=== PATIENT | female | born 1985 | race African-American/Black ===

== ENCOUNTER 2017-09-28 08:28 | Inpatient (IN) | payer SELFPAY ==
[~2017-09-28] VITALS: Ht 157.5 cm; Wt 60.8 kg
[2017-09-28 09:24] LABS: BASOPHILS % 0.2 % (0.0-2.0); HEMOGLOBIN. 10.8 g/dL (12.0-16.0); MEAN CORPUSCULAR HEMOGLOBIN 22.7 pg (28.0-32.0); MEAN CORPUSCULAR VOLUME 73.7 fL (81.0-99.0); MONOCYTES % 6.3 % (2.0-8.0); NEUTROPHILS % 84.5 % (40.0-76.0); PLATELET 418 x1000/uL (130-400); RED BLOOD CELL COUNT 4.75 mill/uL (4.2-5.4); RED CELL DISTRIBUTION WIDTH 13.9 % (11.6-14.6)
[2017-09-28 09:30] LABS: CHLORIDE 98 mEq/L (98-107)
[2017-09-28 09:32] LABS: INR 1.1; PROTHROMBIN TIME 11.1 sec (9.4-11.6)
[2017-09-28 09:45] LABS: CLARITY URINE CLEAR (CLEAR); COLOR URINE DARK YELLOW (YELLOW); KETONES URINE NEGATIVE (NEGATIVE); LEUKOCYTE ESTERASE URINE 2+ (NEGATIVE); NITRITE URINE NEGATIVE (NEGATIVE); OCCULT BLOOD URINE NEGATIVE (NEGATIVE); PH URINE >=9.0 (4.5-8.0); PROTEIN URINE 2+ (NEGATIVE); SPECIFIC GRAVITY URINE 1.024 (1.005-1.030)
[2017-09-28] MEDS ORDERED: CEFTRIAXONE 1 G PREMIX 50 ML IV ONE (11:15)
[2017-09-28] MEDS ORDERED: KETOROLAC 30MG/ML VIAL IV STA (11:27)
[2017-09-28] MEDS ORDERED: ACETAMINOPHEN 325MG TABLET PO STA (11:27)
[2017-09-28] MEDS ORDERED: SODIUM CHLORIDE 0.9% 1000ML BAG (SEPSIS BOLUS) IV ONE (11:30)
[2017-09-28] MEDS ORDERED: IOHEXOL-300 100 ML BOTTLE ONE (12:50)
[2017-09-28] MEDS ORDERED: DOXYCYCLINE HYCLATE 100MG CAPSULE PO ONE (14:15)
[2017-09-28] MEDS ORDERED: METRONIDAZOLE 500 MG PREMIX 100 ML IV ONE (14:15)
[2017-09-28] MEDS ORDERED: MORPHINE SULFATE 4 MG/ML CPJ (NOT FOR IM USE) IV ONE (14:15)
[2017-09-28] MEDS ORDERED: SODIUM CHLORIDE 0.9% 1,000 ML IV SCH (14:21)
[2017-09-28] MEDS ORDERED: CLONIDINE 0.1MG TABLET PO PRN (14:30)
[2017-09-28] MEDS ORDERED: IPRATROPIUM/ALBUTEROL 0.5-3(2.5)MG/3ML NEB INH PRN (14:30)
[2017-09-28] MEDS ORDERED: MAGNESIUM/ALUMINUM HYDROXIDE/SIMETHICONE 30ML UDC PO PRN (14:30)
[2017-09-28] MEDS ORDERED: HYDROMORPHONE HCL/PF 2MG/ML CPJ IV PRN (14:30)
[2017-09-28] MEDS ORDERED: POTASSIUM CHLORIDE 20MEQ TABLET SR PO NR (18:00)
[2017-09-28 18:16] LABS: TOTAL IRON BINDING CAPACITY 340 ug/dL (250-450)
[2017-09-28] MEDS: CEFOXITIN SODIUM 2 G in DEXT 5% WATER 100 ML IV SCH ×2 (19:01→19:03)
[2017-09-28] MEDS: DEXT 5%/0.9% NACL 1,000 ML IV SCH (19:04)
[2017-09-28] MEDS: ONDANSETRON HCL 4MG/2ML VIAL IV PRN ×2 (19:14→23:52)
[2017-09-28 21:00] VITALS: BP 116/68
[2017-09-28 21:35] VITALS: BP 116/68
[2017-09-28] MEDS: MORPHINE SULFATE 4 MG/ML CPJ (NOT FOR IM USE) IV PRN (23:54)
[2017-09-28] MEDS: METRONIDAZOLE 500 MG PREMIX 100 ML IV SCH (23:55)
[2017-09-29] VITALS (7 sets, daily range): BP systolic 94–113; BP diastolic 50–100
[2017-09-29] MEDS: ACETAMINOPHEN 325MG TABLET PO PRN (00:34)
[2017-09-29] MEDS: METRONIDAZOLE 500 MG PREMIX 100 ML IV SCH ×3 (06:21→23:18)
[2017-09-29] MEDS: MORPHINE SULFATE 4 MG/ML CPJ (NOT FOR IM USE) IV PRN ×4 (06:22→19:29)
[2017-09-29] MEDS: DEXT 5%/0.9% NACL 1,000 ML IV SCH ×2 (06:32→17:09)
[2017-09-29] MEDS: ONDANSETRON HCL 4MG/2ML VIAL IV PRN ×2 (10:51→19:28)
[2017-09-29] MEDS: DOCUSATE SODIUM SUGAR FREE 100MG/10ML UDC NG SCH ×2 (11:15→17:00)
[2017-09-29] MEDS ORDERED: HYDROMORPHONE HCL/PF 2MG/ML CPJ IM PRN (11:15)
[2017-09-29] MEDS: DOXYCYCLINE HYCLATE 100MG CAPSULE PO SCH ×3 (11:19→21:09)
[2017-09-29] MEDS: DOCUSATE SODIUM 100MG CAPSULE PO PRN ×2 (11:19→17:09)
[2017-09-29] MEDS: CEFOXITIN SODIUM 2 G in DEXT 5% WATER 100 ML IV SCH ×2 (11:21→17:09)
[2017-09-29] MEDS: KETOROLAC 30MG/ML VIAL IV SCH ×2 (11:57→18:10)
[2017-09-29 13:14] LABS: HEMATOCRIT. 28.9 % (36.0-48.0); MEAN CORPUSCULAR HEMOGLOBIN 23.3 pg (28.0-32.0); MEAN PLATELET VOLUME 9.3 fl (7.4-10.4); PLATELET 354 x1000/uL (130-400); RED BLOOD CELL COUNT 3.85 mill/uL (4.2-5.4); RED CELL DISTRIBUTION WIDTH 13.4 % (11.6-14.6)
[2017-09-29 13:34] LABS: CHLORIDE 103 mEq/L (98-107)
[2017-09-29 14:36] LABS: PLATELET ESTIMATE NORMAL
[2017-09-29] MEDS ORDERED: POTASSIUM CHLORIDE 20MEQ TABLET SR PO NR (18:00)
[2017-09-29] MEDS: FERROUS SULFATE 325MG TABLET PO SCH (18:17)
[2017-09-29] MEDS: POLYETHYLENE GLYCOL 3350 (17GM) 1 DOSE PACK PO SCH (18:18)
[2017-09-30] VITALS: BP 94/56
[2017-09-30] MEDS: CEFOXITIN SODIUM 2 G in DEXT 5% WATER 100 ML IV SCH ×5 (00:26→23:49)
[2017-09-30] MEDS: KETOROLAC 30MG/ML VIAL IV SCH ×5 (00:28→23:49)
[2017-09-30 04:00] VITALS: BP 110/77
[2017-09-30] MEDS: ACETAMINOPHEN 325MG TABLET PO PRN (04:13)
[2017-09-30] MEDS: METRONIDAZOLE 500 MG PREMIX 100 ML IV SCH ×3 (05:55→21:09)
[2017-09-30 08:26] LABS: HIV SCREEN 4G Non Reactive (Non Reactive)
[2017-09-30 09:08] VITALS: BP 103/65
[2017-09-30] MEDS: FERROUS SULFATE 325MG TABLET PO SCH ×3 (09:20→17:29)
[2017-09-30] MEDS: DOXYCYCLINE HYCLATE 100MG CAPSULE PO SCH ×2 (09:20→20:32)
[2017-09-30] MEDS: POLYETHYLENE GLYCOL 3350 (17GM) 1 DOSE PACK PO SCH (09:20)
[2017-09-30 09:25] LABS: CHLORIDE 103 mEq/L (98-107)
[2017-09-30] MEDS: DOCUSATE SODIUM SUGAR FREE 100MG/10ML UDC NG SCH ×2 (09:33→17:28)
[2017-09-30] MEDS: DEXT 5%/0.9% NACL 1,000 ML IV SCH (09:34)
[2017-09-30 09:39] LABS: HEMATOCRIT. 29.8 % (36.0-48.0); HEMOGLOBIN. 9.2 g/dL (12.0-16.0); MEAN CORPUSCULAR VOLUME 74.3 fL (81.0-99.0); MEAN PLATELET VOLUME 9.3 fl (7.4-10.4); PLATELET 397 x1000/uL (130-400); RED BLOOD CELL COUNT 4.01 mill/uL (4.2-5.4); RED CELL DISTRIBUTION WIDTH 13.6 % (11.6-14.6)
[2017-09-30] MEDS ORDERED: POTASSIUM CHLORIDE 20MEQ TABLET SR PO SCH (12:00)
[2017-09-30] MEDS ORDERED: NA PHOS,M-B/NA PHOS,DI-BA ENEMA 118ML PR PRN (12:00)
[2017-09-30 12:22] VITALS: BP 108/67
[2017-09-30 13:45] LABS: PLATELET ESTIMATE NORMAL
[2017-09-30] MEDS ORDERED: MORPHINE SULFATE 4 MG/ML CPJ (NOT FOR IM USE) IV PRN (15:30)
[2017-09-30 16:05] VITALS: BP 112/65
[2017-09-30] MEDS: DEXT 5%/0.45% NACL KCL 20MEQ/L 1,000 ML IV SCH (17:29)
[2017-09-30] MEDS: METOCLOPRAMIDE HCL 10MG/2ML VIAL IV SCH ×2 (17:29→23:49)
[2017-09-30 20:00] VITALS: BP 101/54
[2017-09-30] MEDS ORDERED: SENNOSIDES/DOCUSATE SOD 8.6/50MG TABLET PO PRN (21:00)
[2017-10-01 00:05] VITALS: BP 101/61
[2017-10-01 04:00] VITALS: BP 99/60
[2017-10-01 04:19] LABS: CHLAMYDIA TRACHOMATIS NAA Negative (Negative); NEISSERIA GONORRHOEAE NAA Negative (Negative)
[2017-10-01] MEDS: DEXT 5%/0.45% NACL KCL 20MEQ/L 1,000 ML IV SCH (05:14)
[2017-10-01] MEDS: KETOROLAC 30MG/ML VIAL IV SCH ×2 (05:14→11:40)
[2017-10-01] MEDS: METOCLOPRAMIDE HCL 10MG/2ML VIAL IV SCH ×2 (05:14→11:39)
[2017-10-01] MEDS: CEFOXITIN SODIUM 2 G in DEXT 5% WATER 100 ML IV SCH (05:15)
[2017-10-01] MEDS: METRONIDAZOLE 500 MG PREMIX 100 ML IV SCH (06:08)
[2017-10-01 08:00] VITALS: BP 120/83
[2017-10-01] MEDS: FERROUS SULFATE 325MG TABLET PO SCH (09:02)
[2017-10-01] MEDS: DOCUSATE SODIUM 100MG CAPSULE PO PRN (09:02)
[2017-10-01] MEDS: DOXYCYCLINE HYCLATE 100MG CAPSULE PO SCH (09:02)
[2017-10-01] MEDS: POLYETHYLENE GLYCOL 3350 (17GM) 1 DOSE PACK PO SCH (09:03)
[2017-10-01] MEDS: DOCUSATE SODIUM SUGAR FREE 100MG/10ML UDC NG SCH (09:11)
[2017-10-01 12:00] VITALS: BP 120/80
[2017-10-01] MEDS ORDERED: DOXY100C2 PO (12:07)
[2017-10-01 13:20] VITALS: BP 120/80
== END 2017-10-01 14:14 | disposition home or self-care (01) | DRG 720 ==
LOC: ER 08:49 → 7WST 14:13 → ENRESERV 19:49
PROVIDERS: ADMIT Internal Medicine; ATTEND Internal Medicine
DX: A41.9 Sepsis, unspecified organism (principal); K76.0 Fatty (change of) liver, not elsewhere classified; E87.1 Hypo-osmolality and hyponatremia; K56.7 Ileus, unspecified; D50.9 Iron deficiency anemia, unspecified; F12.90 Cannabis use, unspecified, uncomplicated; E86.0 Dehydration; E87.6 Hypokalemia; N39.0 Urinary tract infection, site not specified; K59.00 Constipation, unspecified; N73.9 Female pelvic inflammatory disease, unspecified; N13.30 Unspecified hydronephrosis; Z79.899 Other long term (current) drug therapy
CPT/HCPCS: 36415; 74177; 76830; 76856; 80048; 80053; 81003; 82270; 83540; 83550; 83605; 83690; 84145; 85025; 85044; 85610; 87040; 87077; 87086; 87186; 87491; 87591; 96365; 96366; 96367; 96368; 96375; 99291; J0694; J1170; J1885; J2270; J2405; J2765; J3490; J7030; J7042; J7060; J7070; Q9967